=== PATIENT | male | born 1940 | race Caucasian/White ===

== ENCOUNTER 2019-08-22 11:41 | Outpatient (RCR) | payer MEDICARE, SELFPAY ==
[2019-06-19 10:56] LABS: INR 2.7; Prothrombin Time 27.8 Seconds (9.64-11.0)
[2019-08-22 12:11] LABS: INR 2.3; Prothrombin Time 24.3 Seconds (9.64-11.0)
== END 2019-09-17 23:59 | disposition home or self-care (01) ==
LOC: CHSLAB 11:41
PROVIDERS: PCP Internal Medicine; Visit Provider Internal Medicine
DX: Z79.01 Long term (current) use of anticoagulants (principal)
CPT/HCPCS: 36415; 85610; 93306

== ENCOUNTER 2019-12-19 09:54 | Outpatient (RCR) | payer MEDICARE, SELFPAY ==
[2019-09-24 15:39] LABS: INR 3.1; Prothrombin Time 31.1 Seconds (9.64-11.0)
[2019-10-22 10:21] LABS: INR 2.6; Prothrombin Time 26.3 Seconds (9.64-11.0)
[2019-12-19 10:18] LABS: Prothrombin Time 29.9 Seconds (9.64-11.0)
== END 2019-12-23 23:59 | disposition home or self-care (01) ==
LOC: CHSLAB 09:54
PROVIDERS: PCP Internal Medicine; Visit Provider Internal Medicine
DX: Z79.01 Long term (current) use of anticoagulants (principal)
CPT/HCPCS: 36415; 85610

== ENCOUNTER 2020-02-26 09:57 | Outpatient (RCR) | payer MEDICARE, SELFPAY ==
[2020-01-23 10:09] LABS: INR 3.7; Prothrombin Time 36.5 Seconds (9.64-11.0)
[2020-02-07 10:43] LABS: INR 4.2
[2020-02-26 10:24] LABS: INR 3.2; Prothrombin Time 32.2 Seconds (9.64-11.0)
== END 2020-04-22 23:59 | disposition home or self-care (01) ==
LOC: CHSLAB 09:57
PROVIDERS: PCP Internal Medicine; Visit Provider Internal Medicine
DX: Z79.01 Long term (current) use of anticoagulants (principal)
CPT/HCPCS: 36415; 85610

== ENCOUNTER 2020-04-28 10:18 | Outpatient (CLI) | payer MEDICARE, SELFPAY ==
[2020-04-28 11:15] LABS: Prothrombin Time 20.6 Seconds (9.64-11.0)
[2020-04-28 12:13] LABS: Ferritin 201 ng/mL (26-388); Iron 76 ug/dL (65-175); Percent Iron Saturation 25 % (12-57); Vitamin B12 554 pg/mL (193-986)
[2020-04-30 22:43] LABS: Red Blood Cell Folate 716 ng/mL RBC (>280)
== END 2020-04-28 10:19 | disposition home or self-care (01) ==
LOC: CHSLAB 10:20
PROVIDERS: PCP Internal Medicine; Visit Provider Internal Medicine
DX: D64.9 Anemia, unspecified (principal); Z79.01 Long term (current) use of anticoagulants
CPT/HCPCS: 36415; 82607; 82728; 82747; 83540; 83550; 85610

== ENCOUNTER 2020-09-03 10:17 | Outpatient (RCR) | payer MEDICARE, SELFPAY ==
[2020-06-23 10:49] LABS: INR 2.5; Prothrombin Time 25.5 Seconds (9.64-11.0)
[2020-07-28 10:54] LABS: INR 2.4; Prothrombin Time 25.7 Seconds (9.50-12.10)
[2020-09-03 10:42] LABS: INR 2.7
== END 2020-09-21 23:59 | disposition home or self-care (01) ==
LOC: CHSLAB 10:17
PROVIDERS: PCP Internal Medicine; Visit Provider Internal Medicine
DX: Z79.01 Long term (current) use of anticoagulants (principal)
CPT/HCPCS: 36415; 85610

== ENCOUNTER 2020-10-07 09:30 | Outpatient (CLI) | payer MEDICARE, SELFPAY ==
[2020-10-07 09:45] LABS: Add Urine Microscopic? YES; Appearance Urine Sl Cloudy (Clear); Basophils Absolute Auto 0.02 K/mm3 (0.00-0.10); Basophils Percent Auto 0.4 % (0.0-1.0); Bilirubin Urine Negative (Negative); Blood Urine 1+ (Negative); Color Urine Yellow (Yellow); Eosinophils Absolute Auto 0.08 K/mm3 (0.02-0.50); Eosinophils Percent Auto 1.6 % (1.0-6.0); Glucose Urine UA Negative (Negative); Hematocrit 36.7 % (37.0-46.0); Immature Granulocyte Absolute 0.02 K/mm3 (0.00-0.00); Immature Granulocyte Percent A 0.4 % (0.0-0.0); Ketones Urine Negative (Negative); Leukocyte Esterase Ur 3+ LEU/UL (Negative); Lymphocytes Absolute Auto 0.66 K/mm3 (1.10-4.50); Lymphocytes Percent Auto 13.6 % (18.0-42.0); Mean Corpuscular HGB Conc 32.7 g/dL (32.0-36.0); Mean Corpuscular Hemoglobin 31.1 pg (27.0-31.0); Mean Corpuscular Volume 95.1 fL (78.0-102.0); Mean Platelet Volume 10.3 fl (8.7-11.0); Monocytes Percent Auto 8.2 % (2.0-11.0); Neutrophils Absolute Auto 3.7 K/mm3 (1.7-7.2); Neutrophils Percent Auto 75.8 % (50.0-70.0); Nitrate Urine Negative (Negative); Platelet Count Result 157 K/mm3 (150-420); Protein Urine 2+ (Negative); Red Blood Count 3.86 M/mm3 (4.70-6.10); Red Cell Distribution Width 13.2 % (11.6-14.4); Specific Grav Ur 1.025 (1.010-1.020); Urobilinogen Urine 0.2 mg/dL (0.2-1.0); White Blood Count 4.9 K/mm3 (4.8-10.8)
[2020-10-07 09:50] LABS: Bacteria Urine 1+ /hpf; WBC Urine >75 /hpf (0-3)
[2020-10-07 09:56] LABS: INR 2.4; Prothrombin Time 24.7 Seconds (9.50-12.10)
[2020-10-07 10:04] LABS: BNP 172 pg/mL (0-100)
[2020-10-07 10:40] LABS: Alanine Aminotransferase 37 U/L (16-63); Albumin Level 3.6 g/dL (3.4-5.0); Alkaline Phosphatase 104 U/L (46-116); Anion Gap 9 mmol/L (8-16); Aspartate Amino Transferase 25 U/L (15-37); Bilirubin,Total 0.8 mg/dL (0.00-1.00); Blood Urea Nitrogen 22 mg/dL (7-18); Calcium 9.2 mg/dL (8.5-10.1); Carbon Dioxide 31 mmol/L (21-32); Chloride 102 mmol/L (98-108); Cholesterol 111 mg/dL (0-200); Creatine Kinase 115 U/L (39-308); Estimated Glomerular Filt Rate > 60; Ferritin 156 ng/mL (26-388); Glucose 92 mg/dL (70-99); HDL Direct 46 mg/dL (40-60); Iron 82 ug/dL (65-175); LDL Cholesterol Calculated 52 mg/dL (<130); Osmolality Calculated 297 mOsm/kg (285-295); Percent Iron Saturation 25 % (12-57); Potassium 4.3 mmol/L (3.5-5.1); Sodium 142 mmol/L (136-145); Total Protein 7.5 g/dL (6.4-8.2); Triglycerides 63 mg/dL (0-150)
[2020-10-09 11:34] LABS: Vitamin D 25 Hydroxy 45 ng/mL (30-100)
== END 2020-10-07 09:31 | disposition home or self-care (01) ==
LOC: CHSLAB 09:32
PROVIDERS: PCP Internal Medicine; Visit Provider Internal Medicine
DX: Z79.01 Long term (current) use of anticoagulants (principal); E78.5 Hyperlipidemia, unspecified; R31.9 Hematuria, unspecified; R82.90 Unspecified abnormal findings in urine; M81.0 Age-related osteoporosis without current pathological fracture; D64.9 Anemia, unspecified; I50.9 Heart failure, unspecified
CPT/HCPCS: 36415; 80053; 80061; 81001; 82306; 82550; 82728; 83540; 83550; 83880; 85025; 85610; 87086; 87088

== ENCOUNTER 2021-01-27 10:20 | Outpatient (RCR) | payer MEDICARE, SELFPAY ==
[2020-11-24 10:21] LABS: INR 2.7; Prothrombin Time 27.7 Seconds (9.50-12.10)
[2020-12-30 11:11] LABS: INR 2.6; Prothrombin Time 26.5 Seconds (9.50-12.10)
[2021-01-27 10:52] LABS: INR 2.7; Prothrombin Time 27.3 Seconds (9.50-12.10)
== END 2021-02-22 23:59 | disposition home or self-care (01) ==
LOC: CHSLAB 10:20
PROVIDERS: PCP Internal Medicine; Visit Provider Internal Medicine
DX: Z79.01 Long term (current) use of anticoagulants (principal)
CPT/HCPCS: 36415; 85610

== ENCOUNTER 2021-05-05 09:55 | Outpatient (CLI) | payer MEDICARE, SELFPAY ==
[2021-05-05 10:16] LABS: Basophils Absolute Auto 0.04 K/mm3 (0.00-0.10); Basophils Percent Auto 0.9 % (0.0-1.0); Eosinophils Absolute Auto 0.13 K/mm3 (0.02-0.50); Eosinophils Percent Auto 2.9 % (1.0-6.0); Hematocrit 39.9 % (37.0-46.0); Immature Granulocyte Absolute 0.01 K/mm3 (0.00-0.00); Immature Granulocyte Percent A 0.2 % (0.0-0.0); Lymphocytes Absolute Auto 0.69 K/mm3 (1.10-4.50); Lymphocytes Percent Auto 15.4 % (18.0-42.0); Mean Corpuscular HGB Conc 32.6 g/dL (32.0-36.0); Mean Corpuscular Hemoglobin 30.4 pg (27.0-31.0); Mean Corpuscular Volume 93.4 fL (78.0-102.0); Mean Platelet Volume 10.5 fl (8.7-11.0); Monocytes Absolute Auto 0.41 K/mm3 (0.10-0.90); Monocytes Percent Auto 9.1 % (2.0-11.0); Neutrophils Absolute Auto 3.2 K/mm3 (1.7-7.2); Neutrophils Percent Auto 71.5 % (50.0-70.0); Platelet Count Result 163 K/mm3 (150-420); Red Blood Count 4.27 M/mm3 (4.70-6.10); White Blood Count 4.5 K/mm3 (4.8-10.8)
[2021-05-05 10:24] LABS: Appearance Urine Sl Cloudy (Clear); Bilirubin Urine Negative (Negative); Color Urine Light Yellow (Yellow); Glucose Urine UA Negative (Negative); Ketones Urine Negative (Negative); Leukocyte Esterase Ur 3+ (Negative); Nitrate Urine Negative (Negative); Protein Urine 1+ (Negative); Specific Grav Ur 1.015 (1.010-1.020); Urobilinogen Urine 0.2 mg/dL (0.2-1.0); pH Urine 7.5 (5.0-8.0)
[2021-05-05 10:29] LABS: Add Urine Microscopic? YES; Blood Urine Trace-Intact (Negative); RBC Urine 0-2 /hpf (0-2); WBC Urine 31-50 /hpf (0-3)
[2021-05-05 10:30] LABS: Bacteria Urine Trace /hpf
[2021-05-05 10:31] LABS: INR 2.6; Prothrombin Time 26.6 Seconds (9.50-12.10)
[2021-05-05 11:56] LABS: Alanine Aminotransferase 37 U/L (16-63); Alkaline Phosphatase 108 U/L (46-116); Anion Gap 7 mmol/L (8-16); Aspartate Amino Transferase 23 U/L (15-37); Bilirubin,Total 0.9 mg/dL (0.00-1.00); Blood Urea Nitrogen 17 mg/dL (7-18); Calcium 9.1 mg/dL (8.5-10.1); Carbon Dioxide 32 mmol/L (21-32); Chloride 104 mmol/L (98-108); Cholesterol 111 mg/dL (0-200); Creatine Kinase 94 U/L (39-308); Estimated Glomerular Filt Rate > 60; Ferritin 173 ng/mL (26-388); Free T3 2.77 pg/mL (2.18-3.98); Free T4 Free Thyroxine 0.92 ng/dL (0.76-1.46); Glucose 92 mg/dL (70-99); HDL Direct 42 mg/dL (40-60); Iron 76 ug/dL (65-175); LDL Cholesterol Calculated 57 mg/dL (<130); Osmolality Calculated 297 mOsm/kg (285-295); Percent Iron Saturation 24 % (12-57); Potassium 4.2 mmol/L (3.5-5.1); Sodium 143 mmol/L (136-145); Thyroid Stimulating Hormone 1.88 uIU/mL (0.36-3.74); Total Protein 7.8 g/dL (6.4-8.2); Triglycerides 62 mg/dL (0-150); Vitamin B12 428 pg/mL (193-986)
== END 2021-05-05 09:56 | disposition home or self-care (01) ==
LOC: CHSLAB 09:57
PROVIDERS: PCP Internal Medicine; Visit Provider Internal Medicine
DX: E78.2 Mixed hyperlipidemia (principal); I50.1 Left ventricular failure, unspecified; Z79.01 Long term (current) use of anticoagulants; D64.9 Anemia, unspecified
CPT/HCPCS: 36415; 80053; 80061; 81001; 82550; 82607; 82728; 83540; 83550; 84439; 84443; 84481; 85025; 85610

== ENCOUNTER 2021-06-04 10:20 | Outpatient (RCR) | payer MEDICARE, SELFPAY ==
[2021-03-09 10:31] LABS: INR 2.7; Prothrombin Time 27.4 Seconds (9.50-12.10)
[2021-04-06 10:54] LABS: INR 2.3; Prothrombin Time 23.5 Seconds (9.50-12.10)
[2021-06-04 10:46] LABS: INR 3.1; Prothrombin Time 31.4 Seconds (9.50-12.10)
== END 2021-06-07 23:59 | disposition home or self-care (01) ==
LOC: CHSLAB 10:20
PROVIDERS: PCP Internal Medicine; Visit Provider Internal Medicine
DX: Z79.01 Long term (current) use of anticoagulants (principal)
CPT/HCPCS: 36415; 85610

== ENCOUNTER 2021-07-06 10:14 | Outpatient (CLI) | payer MEDICARE, SELFPAY ==
[2021-07-06 10:46] LABS: INR 3.2; Prothrombin Time 32.1 Seconds (9.50-12.10)
== END 2021-07-06 10:15 | disposition home or self-care (01) ==
LOC: CHSLAB 10:16
PROVIDERS: PCP Internal Medicine; Visit Provider Internal Medicine
DX: Z79.01 Long term (current) use of anticoagulants (principal)
CPT/HCPCS: 36415; 85610

== ENCOUNTER 2021-10-12 12:36 | Outpatient (RCR) | payer MEDICARE, SELFPAY ==
[2021-08-03 11:07] LABS: INR 3.1; Prothrombin Time 30.9 Seconds (9.50-12.10)
[2021-10-12 12:58] LABS: INR 2.8; Prothrombin Time 28.7 Seconds (9.50-12.10)
== END 2021-11-01 23:59 | disposition home or self-care (01) ==
LOC: CHSLAB 12:36
PROVIDERS: PCP Internal Medicine; Visit Provider Internal Medicine
DX: Z79.01 Long term (current) use of anticoagulants (principal)
CPT/HCPCS: 36415; 85610

== ENCOUNTER 2023-07-28 11:16 | Outpatient (CLI) | payer MEDICARE, SELFPAY ==
--- NOTE | ~2023-07-28 | XR_ITS ---
EXAMINATION: XR chest 2V DATE: 07/28/2023 11:52 INDICATION: Cough. TECHNIQUE: Frontal and lateral views of the chest were obtained. COMPARISON: Chest 2 views 06/11/2014, chest CT 02/13/2013 FINDINGS: The lungs are hyperexpanded, consistent with chronic obstructive pulmonary disease. No pneu monia. There are trace pleural effusions. No pneumothorax. Cardiomegaly is noted. 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 IMPRESSION: 1. Hyperexpanded lungs, consistent with chronic obstructive pulmonary disease. 2. Trace pleural effusions. 3. Cardiomegaly. Reviewed, dictated and finalized at location A. [employer]
[2023-07-28 11:38] LABS: Basophils Absolute Auto 0.03 K/mm3 (0.00-0.10); Basophils Percent Auto 0.4 % (0.0-1.0); Eosinophils Absolute Auto 0.22 K/mm3 (0.02-0.50); Hematocrit 37.7 % (37.0-46.0); Hemoglobin 12.2 g/dL (12.4-15.3); Immature Granulocyte Absolute 0.05 K/mm3 (0.00-0.00); Immature Granulocyte Percent A 0.7 % (0.0-0.0); Lymphocytes Absolute Auto 0.75 K/mm3 (1.10-4.50); Lymphocytes Percent Auto 10.3 % (18.0-42.0); Mean Corpuscular HGB Conc 32.4 g/dL (32.0-36.0); Mean Corpuscular Hemoglobin 30.9 pg (27.0-31.0); Mean Corpuscular Volume 95.4 fL (78.0-102.0); Mean Platelet Volume 9.5 fl (8.7-11.0); Monocytes Absolute Auto 0.67 K/mm3 (0.10-0.90); Monocytes Percent Auto 9.2 % (2.0-11.0); Neutrophils Absolute Auto 5.6 K/mm3 (1.7-7.2); Neutrophils Percent Auto 76.4 % (50.0-70.0); Platelet Count Result 281 K/mm3 (150-420); Red Blood Count 3.95 M/mm3 (4.70-6.10); Red Cell Distribution Width 13.1 % (11.6-14.4); White Blood Count 7.3 K/mm3 (4.8-10.8)
[2023-07-28 11:46] LABS: Anion Gap 0 mmol/L (8-16); Blood Urea Nitrogen 28 mg/dL (7-18); Calcium 9.6 mg/dL (8.5-10.1); Carbon Dioxide 37 mmol/L (21-32); Chloride 99 mmol/L (98-108); Estimated Glomerular Filt Rate 59; Glucose 84 mg/dL (70-99); Osmolality Calculated 286 mOsm/kg (285-295); Potassium 4.1 mmol/L (3.5-5.1); Sodium 136 mmol/L (136-145)
[2023-07-28 11:48] LABS: INR 3.6
== END 2023-07-28 11:17 | disposition home or self-care (01) ==
LOC: CHSIMG 11:20
PROVIDERS: PCP Internal Medicine; Visit Provider Internal Medicine
DX: R05.9 Cough, unspecified (principal); R91.8 Other nonspecific abnormal finding of lung field; J90 Pleural effusion, not elsewhere classified; I51.7 Cardiomegaly
CPT/HCPCS: 36415; 71046; 80048; 85025; 85610